=== PATIENT | male | born 1970 | race Two or more races ===

== ENCOUNTER 2016-06-15 03:30 | Emergency (ER) | payer OTHER ==
[2016-06-15] MEDS ORDERED: NS 0.9% 1000 ML* 1,000 ML IV ONE (03:34)
[2016-06-15 04:09] LABS: Hematocrit 47 % (42-52); Hemoglobin 16.1 g/dl (14.0-18.0); Mean Corpuscular HGB Conc 34 g/dl (31-36); Mean Corpuscular Hemoglobin 32 pg (27-31); Mean Corpuscular Volume 92 fL (80-94); Mean Platelet Volume 8 um3 (7.4-10.4); Red Blood Count 5.12 10^6/ul (4.0-5.4); Red Cell Distribution Width 13 % (10.5-15); White Blood Count 4.4 10^3/ul (3.5-10.8)
[2016-06-15 04:10] LABS: Add Diff/Slide Review? Slide Review Added; Comments Flag Yes
[2016-06-15 04:18] LABS: Albumin 4.1 g/dL (3.2-5.2); BUN/Creatinine Ratio 16.8 (8-20); Calcium 8.9 mg/dL (8.6-10.3); EGFR African American 110.8 (>60); EGFR Non-African American 86.1 (>60); Globulin 2.6 g/dL (2-4); Magnesium 2.1 mg/dL (1.9-2.7); Potassium 3.7 mmol/L (3.5-5.0); Total Bilirubin 0.5 mg/dL (0.2-1.0); Total Protein 6.7 g/dL (6.4-8.9)
[2016-06-15 05:17] LABS: Budding Yeast Present (Absent); Urine Bacteria Absent (Absent); Urine Bilirubin Negative (Negative); Urine Glucose 2+(150 mg/dL) (Negative); Urine Nitrite Negative (Negative)
--- NOTE | 2016-06-15 05:33 | ED ---
I, Oh,Kevon, scribed for Jason Nicholas MD on 06/15/16 at 0354 . Neurological HPI - HPI Summary HPI Summary: This 45 y/o male presents to ED via ambulance for acute onset of witnessed seizure tonight [employer]OCIATE [employer] DIRECT[employer]. Pt was sleeping in bed when he fell out of bed and proceeded to have seizure on floor for about a minute. witnessed the episode and reports that pt appeared confused after the episode. Negative hx of any known seizure. Pt reports that he felt exhausted before going to bed around 2000 PM last evening. - History of Current Complaint Stated Complaint: SEIZURE Hx Obtained From: Patient, Family/Manager Financial Systems - present at bedside, Medical Records Onset/Duration: Sudden Onset Timing: Intermittent Episodes Lasting: - 1 minute Onset Severity: Moderate Current Severity: None Neurological Deficit Location: Generalized Character: Confusion - post-ictal Aggravating: Nothing Alleviating: Spontanious Resolution Associated Signs and Symptoms: Positive: Seizure - Allergy/Home Medications Allergies/Adverse Reactions: Allergies Allergy/AdvReac Type Severity Reaction Status Date / Time No Known Allergies Allergy Verified 06/15/16 04:04 Home Medications: Home Medications NK [No Home Medications Reported] 06/15/16 [History Confirmed 06/15/16] PMH/Surg Hx/FS Hx/Imm Hx Cardiovascular History: Denies: Hx Pacemaker/ICD Sensory History: Denies: Hx Hearing Aid Psychiatric History: Denies: Hx Panic Disorder - Surgical History Surgery Procedure, Year, and Place: RT ANKLE TENDON REPAIR. LT ANKLE ACHILLES REPAIR - Family History Known Family History: Positive: Hypertension, Diabetes - Social History Lives: With Family Alcohol Use: Occasionally Hx Substance Use: No Substance Use Type: Reports: None Hx Tobacco Use: Yes Smoking Status (MU): Current Some Day Smoker Review of Systems Negative: Fever Neurological: Other - positive for seizure. Positive for post-ictal All Other Systems Reviewed And Are Negative: Yes Physical Exam Triage Information Reviewed: Yes Vital Signs On Initial Exam: Initial Vitals Temp Pulse Resp BP Pulse Ox 98.1 F 86 19 140/82 99 06/15/16 03:56 06/15/16 03:56 06/15/16 03:56 06/15/16 03:56 06/15/16 03:56 Vital Signs Reviewed: Yes Appearance: Positive: Well-Appearing, No Pain Distress Skin: Positive: Warm Head/Face: Positive: Normal Head/Face Inspection Eyes: Positive: JOSEP ENT: Positive: Hearing grossly normal Neck: Positive: Supple Respiratory/Lung Sounds: Positive: Clear to Auscultation, Breath Sounds Present Cardiovascular: Positive: RRR Abdomen Description: Positive: Nontender, Soft Bowel Sounds: Positive: Present Musculoskeletal: Positive: Strength/ROM Intact Neurological: Positive: Sensory/Motor Intact, Alert, Oriented to Person Place, Time, CN Intact II-III, Normal Gait Psychiatric: Positive: Affect/Mood Appropriate Diagnostics - Vital Signs Vital Signs Temp Pulse Resp BP Pulse Ox 06/15/16 03:58 98.1 F 86 19 140/82 99 06/15/16 03:56 98.1 F 86 19 140/82 99 - Laboratory Lab Results: Lab Results 06/15/16 06/15/16 06/15/16 Range/Units 03:50 03:50 03:50 WBC 4.4 (3.5-10.8) 10^3/ul RBC 5.12 (4.0-5.4) 10^6/ul Hgb 16.1 (14.0-18.0) g/dl Hct 47 (42-52) % MCV 92 (80-94) fL MCH 32 H (27-31) pg MCHC 34 (31-36) g/dl RDW 13 (10.5-15) % Plt Count 134 L (150-450) 10^3/ul MPV 8 (7.4-10.4) um3 Neut % (Auto) 53.9 (38-83) % Lymph % (Auto) 26.6 (25-47) % [place] % (Auto) 10.7 H (1-9) % Eos % (Auto) 2.1 (0-6) % Baso % (Auto) 6.7 H (0-2) % Absolute Neuts (auto) 2.4 (1.5-7.7) 10^3/ul Absolute Lymphs (auto) 1.2 (1.0-4.8) 10^3/ul Absolute Monos (auto) 0.5 (0-0.8) 10^3/ul Absolute Eos (auto) 0.1 (0-0.6) 10^3/ul Absolute Basos (auto) 0.3 H (0-0.2) 10^3/ul Absolute Nucleated RBC 0.01 10^3/ul Nucleated RBC % 0.2 INR (Anticoag Therapy) 0.93 (0.89-1.11) Sodium 133 (133-145) mmol/L Potassium 3.7 (3.5-5.0) mmol/L Chloride 105 (101-111) mmol/L Carbon Dioxide 20 L (22-32) mmol/L Anion Gap 8 (2-11) mmol/L BUN 16 (6-24) mg/dL Creatinine 0.95 (0.67-1.17) mg/dL Est GFR ( Amer) 110.8 (>60) Est GFR (Non-Af Amer) 86.1 (>60) BUN/Creatinine Ratio 16.8 (8-20) Glucose 166 H (70-100) mg/dL Lactic Acid (0.5-2.0) mmol/L Calcium 8.9 (8.6-10.3) mg/dL Magnesium 2.1 (1.9-2.7) mg/dL Total Bilirubin 0.50 (0.2-1.0) mg/dL AST 25 (13-39) U/L ALT 22 (7-52) U/L Alkaline Phosphatase 47 (34-104) U/L Total Protein 6.7 (6.4-8.9) g/dL Albumin 4.1 (3.2-5.2) g/dL Globulin 2.6 (2-4) g/dL Albumin/Globulin Ratio 1.6 (1-3) Urine Color Urine Appearance Urine pH (5-9) Ur Specific [place] (1.010-1.030) Urine Protein (Negative) Urine Ketones (Negative) Urine Blood (Negative) Urine Nitrate (Negative) Urine Bilirubin (Negative) Urine Urobilinogen (Negative) Ur Leukocyte Esterase (Negative) Urine WBC (Auto) (Absent) Urine RBC (Auto) (Absent) Urine Bacteria (Absent) Urine Yeast (Absent) Urine Glucose (Negative) Urine Ascorbic Acid (Negative) 06/15/16 06/15/16 Range/Units 03:50 05:00 WBC (3.5-10.8) 10^3/ul RBC (4.0-5.4) 10^6/ul Hgb (14.0-18.0) g/dl Hct (42-52) % MCV (80-94) fL MCH (27-31) pg MCHC (31-36) g/dl RDW (10.5-15) % Plt Count (150-450) 10^3/ul MPV (7.4-10.4) um3 Neut % (Auto) (38-83) % Lymph % (Auto) (25-47) % [place] % (Auto) (1-9) % Eos % (Auto) (0-6) % Baso % (Auto) (0-2) % Absolute Neuts (auto) (1.5-7.7) 10^3/ul Absolute Lymphs (auto) (1.0-4.8) 10^3/ul Absolute Monos (auto) (0-0.8) 10^3/ul Absolute Eos (auto) (0-0.6) 10^3/ul Absolute Basos (auto) (0-0.2) 10^3/ul Absolute Nucleated RBC 10^3/ul Nucleated RBC % INR (Anticoag Therapy) (0.89-1.11) Sodium (133-145) mmol/L Potassium (3.5-5.0) mmol/L Chloride (101-111) mmol/L Carbon Dioxide (22-32) mmol/L Anion Gap (2-11) mmol/L BUN (6-24) mg/dL Creatinine (0.67-1.17) mg/dL Est GFR ( Amer) (>60) Est GFR (Non-Af Amer) (>60) BUN/Creatinine Ratio (8-20) Glucose (70-100) mg/dL Lactic Acid 4.1 H* (0.5-2.0) mmol/L Calcium (8.6-10.3) mg/dL Magnesium (1.9-2.7) mg/dL Total Bilirubin (0.2-1.0) mg/dL AST (13-39) U/L ALT (7-52) U/L Alkaline Phosphatase (34-104) U/L Total Protein (6.4-8.9) g/dL Albumin (3.2-5.2) g/dL Globulin (2-4) g/dL Albumin/Globulin Ratio (1-3) Urine Color Yellow Urine Appearance Cloudy Urine pH 5.0 (5-9) Ur Specific [place] 1.016 (1.010-1.030) Urine Protein 1+(30 mg/dl) H (Negative) Urine Ketones Trace H (Negative) Urine Blood Negative (Negative) Urine Nitrate Negative (Negative) Urine Bilirubin Negative (Negative) Urine Urobilinogen Negative (Negative) Ur Leukocyte Esterase Negative (Negative) Urine WBC (Auto) Trace(0-5/hpf) (Absent) Urine RBC (Auto) Trace(0-2/hpf) (Absent) Urine Bacteria Absent (Absent) Urine Yeast Present H (Absent) Urine Glucose 2+(150 mg/dl) H (Negative) Urine Ascorbic Acid * H (Negative) Result Diagrams: 06/15/16 03:50 06/15/16 03:50 Lab Statement: Any lab studies that have been ordered have been reviewed, and results considered in the medical decision making process. - CT Brain CT Interpretation: No Acute Changes CT Interpretation Completed By: Radiologist Re-Evaluation - Re-Evaluation First Eval Re-Evaluation Time: 05:00 - pt remains awake, alert, no further seizures, will d /c home to call neuro in am for f/u, will not start anticonvulsant since only 1 seizure, will have pt f/u with neuro for eeg, etc. Pt explained may not drive ot use heavy machinery and return to ed if another seizure Course/Dx - Diagnoses Provider Diagnoses: Seizure disorder Discharge - Discharge Plan Condition: Stable Disposition: HOME Patient Education Materials: New-Onset Seizure in Adults (ED) Referrals: Fatuma Bae MD [Medical Doctor] - 2 Days Carol Blank MD [Primary Care Provider] - 2 Days Additional Instructions: Please be sure to avoid driving until you follow up with neurologist. The documentation as recorded by the Ravinder mead Soohyun accurately reflects the service I personally performed and the decisions made by me, Jason Nicholas MD.
[2016-06-15 05:36] VITALS: BP 143/72
[2016-06-15] MEDS ORDERED: LORazepam INJ* 2 MG/ML 1 ML VIAL ONE (07:25)
--- NOTE | 2016-06-15 08:05 | RAD ---
INDICATION: Seizure. COMPARISON: There are no prior studies available for comparison. TECHNIQUE: Contiguous axial sections of the brain were obtained from the skull base to the vertex without contrast. FINDINGS: The ventricles, cisterns and sulci are within normal limits. No significant focal abnormality or mass effect is seen. There is no evidence for hemorrhage. No significant focal osseous abnormality is seen. The visualized portion of the paranasal sinuses and mastoid air cells appear clear. IMPRESSION: NO EVIDENCE FOR GROSS ACUTE INFARCT, MASS EFFECT OR HEMORRHAGE.
== END 2016-06-15 05:35 | disposition home or self-care (01) ==
LOC: ED 03:30
DX: G40.909 Epilepsy, unspecified, not intractable, without status epilepticus (principal)
CPT/HCPCS: 36415; 70450; 80053; 81003; 81015; 83605; 83735; 85025; 85610; 93005; 96374; 99283; J2060

== ENCOUNTER 2016-06-15 06:32 | Observation (INO) | payer OTHER ==
[2016-06-15] MEDS ORDERED: NS 0.9% 1000 ML* 1,000 ML IV ONE (06:40)
--- NOTE | 2016-06-15 06:47 | ED ---
I, Oh,Kevon, scribed for Jason Nicholas MD on 06/15/16 at 0643 . Neurological HPI - HPI Summary HPI Summary: This 45 y/o male presents to ED again for the recurrent seizure shortly after being discharged with dx of new onset of seizure earlier this morning. Pt arrived home and went to bed, after which pt's family witnessed patient "convulsing" for about a minute. Pt is brought back to ED. Neurologist consultation is requested, and further plan of care will be discussed. Plan of care involving admission, EEG, and further neurologist work up is discussed. Pt is agreeable at this time. - History of Current Complaint Chief Complaint: EDSeizure Stated Complaint: SIEZURE Time Seen by Provider: 06/15/16 06:37 Hx Obtained From: Patient, Medical Records Onset/Duration: Sudden Onset Timing: Intermittent Episodes Lasting: - 1 minute Neurological Deficit Location: Generalized Associated Signs and Symptoms: Positive: Seizure - Allergy/Home Medications Allergies/Adverse Reactions: Allergies Allergy/AdvReac Type Severity Reaction Status Date / Time No Known Allergies Allergy Verified 06/15/16 06:39 PMH/Surg Hx/FS Hx/Imm Hx Cardiovascular History: Denies: Hx Pacemaker/ICD Sensory History: Denies: Hx Hearing Aid Neurological History: Reports: Hx Seizures Psychiatric History: Denies: Hx Panic Disorder - Surgical History Surgery Procedure, Year, and Place: RT ANKLE TENDON REPAIR. LT ANKLE ACHILLES REPAIR - Family History Known Family History: Positive: Hypertension, Diabetes - Social History Alcohol Use: Occasionally Hx Substance Use: No Substance Use Type: Reports: None Hx Tobacco Use: Yes Smoking Status (MU): Current Some Day Smoker Review of Systems Negative: Fever Negative: incontinence Neurological: Other - positive for recurrent seizure All Other Systems Reviewed And Are Negative: Yes Physical Exam Triage Information Reviewed: Yes Vital Signs On Initial Exam: Initial Vitals Temp Pulse Resp BP Pulse Ox 97.0 F 97 15 165/80 95 06/15/16 06:34 06/15/16 06:34 06/15/16 06:34 06/15/16 06:34 06/15/16 06:34 Vital Signs Reviewed: Yes Appearance: Positive: Well-Appearing, No Pain Distress Skin: Positive: Warm Head/Face: Positive: Normal Head/Face Inspection Eyes: Positive: JOSEP ENT: Positive: Hearing grossly normal Neck: Positive: Supple Respiratory/Lung Sounds: Positive: Clear to Auscultation, Breath Sounds Present Cardiovascular: Positive: RRR Abdomen Description: Positive: Soft Musculoskeletal: Positive: Strength/ROM Intact Neurological: Positive: Sensory/Motor Intact, Alert, Oriented to Person Place, Time, Normal Gait Psychiatric: Positive: Affect/Mood Appropriate Diagnostics - Vital Signs Vital Signs Temp Pulse Resp BP Pulse Ox 06/15/16 06:34 97.0 F 97 15 165/80 95 - Laboratory Lab Statement: Any lab studies that have been ordered have been reviewed, and results considered in the medical decision making process. Re-Evaluation - Re-Evaluation First Eval Re-Evaluation Time: 06:46 - d/w dr ortiz, will admit, hold anticonvulksaants for now, mri,eeg today Course/Dx - Diagnoses Provider Diagnoses: Seizures - Physician Notifications Discussed Care of Patient With: Dr. Bae (Neurologist) at [address] Ross (Hospitalist) consult desired and call out at 0645 AM Time Discussed With Above Provider: 06:41 Instructed by Provider To: Admit As Inpatient Discharge - Discharge Plan Condition: Fair Disposition: ADMITTED TO [facility] The documentation as recorded by the Ravinder mead Soohyun accurately reflects the service I personally performed and the decisions made by , Jason Nicholas MD.
[2016-06-15] MEDS ORDERED: Ondansetron INJ* 2 MG/ML VIAL IV PRN (07:18)
[2016-06-15] MEDS ORDERED: LORazepam INJ* 2 MG/ML 1 ML VIAL IV PUSH ONE (07:38)
[2016-06-15] MEDS ORDERED: Enoxaparin(*) 40 MG/0.4 ML SYR SUBCUT SCH ×2 (08:00→14:00)
[2016-06-15] MEDS ORDERED: LORazepam INJ* 2 MG/ML 1 ML VIAL IV PUSH PRN (08:49)
--- NOTE | 2016-06-15 10:03 | RAD ---
HISTORY: Rales COMPARISONS: September 04, 2007 VIEWS:1: Single frontal portable view of the chest at 9:25 AM FINDINGS: LINES AND TUBES: None. CARDIOMEDIASTINAL SILHOUETTE: The cardiomediastinal silhouette is normal for portable technique. PLEURA: The costophrenic angles are sharp. No pleural abnormalities are noted. LUNG PARENCHYMA: The lungs are clear. ABDOMEN: The upper abdomen is clear. There is no subphrenic gas. BONES AND SOFT TISSUES: No bone or soft tissue abnormalities are noted. IMPRESSION: NO ACTIVE CARDIOPULMONARY DISEASE.
[2016-06-15 10:09] LABS: Benzodiazepine Urine Screen None Detected (None Detect)
--- NOTE | 2016-06-15 10:12 | ED ---
I, James Kim, scribed for Sherrill Sinha MD on 06/15/16 at 0737 . Progress - Progress Note Progress Note: Keon Reyna is a 45 yo male presenting to [facility] with a seizure last night, for which he presented to [facility]. He was discharged last night after work up following his first seizure, and proceeded to go home and sleep fitfully, until experiencing another seizure earlier this morning approximately 1.5 hrs after discharge. He woke completely and returned to baseline, except for slight confusion, when presenting to [facility]. This morning, prior to admission [place] [facility] he had another generalized seizure lasting 40 seconds at 0725. Pt was given Ativan 2mg IV after the seizure had resolved spontaneoulsy, and Dr. Stallings and Dr. Bae consulted. Re-Evaluation - Re-Evaluation First Eval Re-Evaluation Time: 07:25 Change: Worse Comment: experienceing seizure Second Eval Re-Evaluation Time: 07:34 Change: Unchanged Comment: Pt and family are informed of recommendations of Dr. Bae Third Eval Re-Evaluation Time: 08:36 Change: Improved Comment: Pt is sleeping, informed of Dr. Bae's reecommendations. Pt is not roused by voice or light touch. Pt does not exhibit any seizure activity. Course/Dx - Course Course Of Treatment: Keon Osorio is a 45 yo male presenting to [facility] after seizure last night and this morning, signed out from Dr. Nicholas. In the ED he received Keppra IV and ativan. - Diagnoses Provider Diagnoses: Seizures - Provider Notifications Discussed Care Of Patient With: 726 Dr. Stallings (hospitalist) - discussed Pt condition, recommends consult with Dr. Bae. 0731 - Dr. Bae (neurology) - discussed Pt condition, recommends Keppra IV. 0834 - Dr. Bae (neurology) - discussed Pt condition, requests urine for a drug screen. Instructed by Provider To: Admit As Inpatient The documentation as recorded by the carine mead Timothy accurately reflects the service I personally performed and the decisions made by me, Sherrill Sinha MD.
[2016-06-15] MEDS: NS 0.9% 1000 ML* 1,000 ML IV SCH ×2 (11:01→23:10)
--- NOTE | 2016-06-15 14:02 | CONS ---
NEUROLOGY CONSULTATION: DATE OF CONSULT: 06/15/16 LOCATION: The patient is in the emergency department. REQUESTING PHYSICIAN: Dr. Nicholas. REASON FOR CONSULT: New-onset seizures. HISTORY OF PRESENT ILLNESS: Mr. Dana Reyna is a 45-year-old man with no significant past medical history aside from head injury last year at a friend's house, who presents with 3 new-onset seizures in the past 24 hours. The history is obtained from discussion with Dr. Nicholas over the phone as well as discussion with the patient's at the bedside as the patient is currently still postictal. Around 2:30 this morning, his was woken up by the sound of him falling out of bed and hitting his head on the nightstand. She found him in a generalized tonic- clonic seizure on the floor, which reportedly lasted less than a minute. He was thrashing and combative afterward. He was brought to the emergency department via ambulance for evaluation and apparently told Dr. Nicholas that he felt exhausted last evening before going to bed around 8 o'clock. As his labs came back unremarkable and he was essentially back to his baseline, he was discharged home around around 5 a.m. and was instructed to follow up with Neurology as an outpatient. He then experienced a second seizure around 6:30 in the morning at home and was brought back to the emergency department once again. He had almost returned to his baseline aside from being tired and slightly confused about whether he had traveled out of the country recently or not when he experienced the third seizure around 7:30 or 7: 45 this morning. At that time, he received 2 mg of IV Ativan and I advised an IV load of levetiracetam 1500 mg. His denies noticing any localizing signs with the seizures, though she thinks perhaps his head was turned toward the right with the third seizure. His reports that at a friend's house sometime last year he fell off a patio and hit his head on the ground. She is not aware if he lost consciousness and says he has had "undiagnosed" head injury. Since then, at times when he is at the gym, he has complained of dimming of his vision, but otherwise she is not aware of any sequelae from this accident. She denies that he has any history of drug use outside of marijuana. He drinks a couple of beers a few times a week but has never been a binge drinker and has never been an alcoholic. He has no history of [employer] infections as far she is aware. He apparently stuttered as a child, but she has been unaware of any developmental problems or learning problems. There is no family history of epilepsy. PAST MEDICAL HISTORY: Right ankle tendon repair and left ankle Achilles repair. FAMILY HISTORY: There is a family history of hypertension and diabetes. No family history of epilepsy. SOCIAL HISTORY: He lives with his . They have a 28-year-old daughter. Substance use as per the HPI. He also occasionally smokes cigars. 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 REVIEW OF SYSTEMS: He had what his describes as a cold over the past week. Approximately, a week ago, he had a fever which was measured to about 100 degrees Fahrenheit, but has not had a fever since then and has been recovering normally from this cold. There is no history of appetite loss, nausea, vomiting , diarrhea. There are no new skin rashes. He has not traveled out of the country recently. PHYSICAL EXAM: Vital Signs: Temperature 97 degrees, blood pressure 165/80, heart rate 97, and oxygen saturation 95% on room air. On general examination, he is asleep in the bed and somewhat restless. He is lying on his left side. There is blood on his lips and blood on the sheets of the gurney as well. His heart is tachycardic but regular and there are no obvious murmurs. The lungs appeared clear to auscultation though he could not really cooperate with taking deep breaths. I was not able to get a good look in his mouth at this time. On neurologic examination, he is somnolent and arouses briefly to verbal stimuli but falls back to sleep quickly. He is aware that he is in a medical facility because of seizures. He reported his age his to be 46, which he will be in a few weeks. On cranial nerve examination, pupils are equal, round, and reactive from 4 to 2 mm bilaterally. His gaze was midline and he was able to move his eyes in all directions without nystagmus. There was blink to threat bilaterally. His face appears symmetric but he was not able to cooperate with grimacing or smiling. He indicated that his facial sensation was intact bilaterally to light touch. On motor examination, he moved his lower extremities equally. He was able to sustain his left upper extremity antigravity for 10 seconds but with the right extremity, there was some drifting down to the bed prior to 10 seconds. It was not clear if this was due to his mental status or due to true weakness at this time. Sensation is intact to noxious stimulation. There is no ankle clonus and his toes are downgoing. Coordination testing could not be completed at this time. DIAGNOSTIC STUDIES/LAB DATA: Collected during his initial emergency department visit showed a white blood cell count of 4.4 with elevated monocyte percentage of 10.7 and an elevated basophil percentage of 6.7 and elevated basophils of 0.3. His MCH is 32 and platelets are 134. Chemistry panel showed a low CO2 of 20, glucose of 166, and a lactate of 4.1. His sodium was normal and renal function was normal. Calcium was 8.9 and magnesium 2.1. Urinalysis showed 1+ protein, trace ketones, 2+ glucose, and was positive for yeast. Noncontrast brain CT was obtained and personally reviewed and showed no obvious hemorrhage and no tumor and no obvious intracranial abnormalities. IMPRESSION: Keon Reyna is a 45-year-old man with little significant past medical history aside from a head injury of unknown severity and significance approximately a year ago as well as a recent upper respiratory infection presenting with 3 seizures in the last 24 hours, which are apparently unprovoked. At this point, he has been loaded with 1500 mg of Keppra and also received 2 mg of Ativan. I will continue him on levetiracetam 750 mg twice daily at this time. He has been ordered for an EEG and I have asked for this to be delayed a couple of hours in an effort to give a chance for some of the Ativan effect to wear off. He will also undergo MRI scan of the brain with and without contrast with epilepsy protocol. I have also requested a urine drug screen be completed. If he has another seizure, I think it will be appropriate to obtain lumbar puncture, especially given his recent apparent viral infection though this sounds relatively minor by description. He will be brought into the hospital for this workup and for monitoring for further seizure activity. Thank you for this consultation. [id number]/[facility] #: [id number] [facility]
--- NOTE | 2016-06-15 14:26 | HP ---
ADMISSION HISTORY AND PHYSICAL: DATE OF ADMISSION: 06/15/2016. PRIMARY CARE PROVIDER: Dr. Aranda, although has not seen in many years. HEALTHCARE PROXY: His , Leigh. CODE STATUS: Full. SOURCE OF INFORMATION: History obtained from interview with the patient's , discussion with ED physician, review of Dr. Bae's note. RELIABILITY: Good. CHIEF COMPLAINT: Multiple seizures. HISTORY OF PRESENT ILLNESS: This is a 45-year-old man, no significant past medical history, had been in his usual state of health up until approximately 1 week prior, had upper respiratory tract infection characterized by cough and congestion and fever to 100 degrees, had resolved, without any headache. Healthcare proxy notes they live with their 2-year-old grandchild, who has had a runny nose, has not changed from baseline. The night of admission at 2:45 a.m. woke up at the noise from her hitting a lamp, found him having a generalized tonic-clonic seizure lasted for approximately 1 minute. EMS was activated per their reports. He was still confused upon their arrival. He was brought to [facility] ED and returned back to his baseline and had normal labs, was discharged from the hospital. However, around 6:30 a.m., he had a second GTC , again lasting for approximately 1 minute, returned to [facility] ED. He returned to his baseline again; however, had a third seizure on 7:30 a.m., GTC, received 2 mg IV Ativan and loaded with 1.5 g of Keppra. It is of note that the patient last year fell off a patio and hit his head. It was unwitnessed and when the family arrived, he was awake. There was no suspected loss of consciousness. When seen by this author, the patient was alert, but drowsy, unable to participate meaningfully in interview or review of systems. PAST MEDICAL HISTORY: History of hitting his head 1 year prior, right ankle repair, left Achilles tendon repair, left shoulder tear repair. MEDICATIONS: No medications, no [id number]'s. ALLERGIES: No known drug allergies. FAMILY HISTORY: No history of epilepsy. Father and mother both had hypertension and diabetes. 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 Occasional marijuana, 2 to 3 beers several times per week. Smokes cigars occasionally. Lives with his . REVIEW OF SYSTEMS: Obtained through , as above, otherwise all negative as able to review, as the patient could not participate. PHYSICAL EXAMINATION GENERAL: Lying flat in bed, wakes to voice. He has bruising around bilateral lips and chin. VITAL SIGNS: When seen by this author, 118/73, heart rate is 78, respiratory rate is 22, T-max in the emergency room is 97 degrees and is 92% on room air. HEENT: He has moist mucous membranes. Sclerae are anicteric. LUNGS: Clear with rales in bilateral bases. HEART: Regular rate and rhythm. ABDOMEN: Soft, nontender. EXTREMITIES: Warm and well perfused without clubbing, cyanosis, or edema. NEUROLOGIC: He is A and O x2 to self and hospital. He said it was 191, then 2013. Follows simple commands, although is lethargic. Difficult test. Cranial nerves and gait not assessed. DIAGNOSTIC STUDIES/LAB DATA: Reviewed are in chart from previous hospital stay. This morning sodium 133, potassium 3.7, chloride 105, bicarb 20, BUN 16, creatinine 0.95, glucose is 166, lactic acid is 4.1. LFTs within normal limits. White blood cell count 4.4, hemoglobin 16.1, and platelets 174. Chest x-ray ordered and pending. ASSESSMENT AND PLAN: This is a 45-year-old man, no significant past medical history except for head strike approximately 1 year prior with unknown loss of consciousness and presenting with 3 seizures over the last 24 hours, status post Keppra load and Ativan. 1. Seizures. Appreciate Dr. Bae's assistance. We will admit to hospital. His EEG and MRI are pending. Continue Keppra 750 mg twice daily. If has additional seizure, we will plan on lumbar puncture. Urine drug screen is pending. Seizure precautions. 2. Lactic acidosis. Suspected in the setting of multiple seizures. I will repeat to ensure downtrending. 3. Increased glucose. Add on hemoglobin A1c to labs. We will cover with lispro if needed. 4. Rales in bilateral bases. Check chest x-ray. 5. DVT prophylaxis. Enoxaparin. 6. FEN. Continue 100 cc normal saline until more awake and able to tolerate diet. 7. Code status is full. [id number]/[facility] #: [id number] [facility]
[2016-06-15] MEDS ORDERED: Gadoteridol* (CONTRAST) 279.3 MG/ML 10 ML IV ONE (15:56)
--- NOTE | 2016-06-15 16:52 | RAD ---
INDICATION: Seizures COMPARISON: CT brain June 15, 2016 TECHNIQUE: sagittal T1 FLAIR, axial diffusion, axial T1 FLAIR, axial T2, axial T2 FLAIR, coronal T2 FLAIR, coronal T1 and SWI images were acquired. FINDINGS: Craniocervical junction: The craniocervical junction appears normal. Ventricles/sulci: The ventricles and cisterns are normal in size and configuration for age. Brain parenchyma: There are no focal parenchymal abnormalities. There is no evidence of intracranial mass or mass effect. The diffusion weighted images show no evidence of acute ischemia. Intracranial hemorrhage: There is no intracranial hemorrhage. Extra-axial spaces: There are no extra-axial fluid collections or masses. Orbits: There are no MR abnormalities of the orbital structures. Paranasal sinuses/mastoid: The paranasal sinuses are clear. The mastoid air cells are well aerated.. Vascular: No abnormalities are seen. Other: None IMPRESSION: NO SPECIFIC MR ABNORMALITIES. NO TEMPORAL LOBE ABNORMALITIES.
[2016-06-15] MEDS: Acetaminophen TAB* 325 MG PO PRN (19:57)
[2016-06-15] MEDS: levETIRAcetam TAB* 500 MG PO SCH (21:41)
[2016-06-16 07:20] LABS: EGFR African American 145.5 (>60); EGFR Non-African American 113.1 (>60)
--- NOTE | 2016-06-16 07:25 | EEG ---
ELECTROENCEPHALOGRAPHY: DATE OF STUDY: 06/15/16 LOCATION: The patient is an inpatient. ORDERING PHYSICIAN: Stanton Stallings MD. HISTORY: This is a 45-year-old man with no significant past medical history who experienced 3 seizu res in the past 24 hours, which are described as generalized tonic-clonic in nature. He received 2 mg of Ativan approximately 3 hours prior to this EEG. He has also been loaded with 1500 mg of Keppr a. EEG is requested to evaluate for epileptiform abnormalities. MEDICATIONS: 1. Levetiracetam. 2. Zofran. 3. Tylenol. 4. Lovenox. DESCRIPTION: The waking background was very briefly observed toward the middle to end of this recor ding. It demonstrated appropriate organization with clearly defined ngjzkcfg-jh-lesimydsg voltage a nd frequency gradients. There was a well- defined posterior dominant rhythm of 9 Hz, which was symm etrical. Anteriorly, there was an expected pattern of lower voltage, irregular, and mixed faster fr equencies. Attenuation of the occipital rhythm accompanied drowsiness. The majority of the recording was captu red in the sleep state, which showed appropriate organization with well-developed sleep spindles. T hese sleep transients showed appropriate morphology and were bilaterally synchronous and symmetrical . Throughout the recording, there were no epileptiform discharges, focal features, paroxysmal features or significant interhemispheric asymmetries. IMPRESSION: This is a normal waking and sleep EEG. There are no epileptiform abnormalities. [id number]/[facility] #: [id number]
[2016-06-16] MEDS: levETIRAcetam TAB* 500 MG PO SCH (08:19)
[2016-06-16] MEDS: Acetaminophen TAB* 325 MG PO PRN (08:22)
[2016-06-16 09:11] VITALS: BP 165/78
--- NOTE | 2016-06-16 23:03 | PN ---
NEUROLOGY FOLLOWUP: DATE OF FOLLOWUP: 06/16/16 OVERNIGHT EVENTS: No acute overnight events. The patient has not experienced any further seizures. His mouth is sore, in particular his tongue. Levetiracetam seems to be making him sleepy and his says he keeps asking everyone who comes in when he can go home, which is a bit "aggressive" for him, but otherwise he seems to be back to his baseline. I asked the patient about his history of head trauma and he reports that he fell off a wall on to a concrete patio or side walk and hit his head last year. When asked if he lost consciousness, he replied "I should have." He states that he still gets some postconcussive symptoms intermittently, which mainly consist of the dimming of vision when he is exercising that his described to me yesterday. MEDICATIONS: Medications were reviewed and include levetiracetam 750 mg twice daily. PHYSICAL EXAMINATION: Vital Signs: Temperature was measured at 100 degrees Fahrenheit at 7:55 in the morning and had been 98.4 at 4:18 in the morning. Blood pressure 165/78, heart rate 74. Oxygen saturation 97% on room air. On general examination, he was initially somewhat restless in bed, flipping from side to side, but then was able to be engaged in the history and physical and seemed appropriate though with some poor eye contact. On general examination, he had some trauma to the right side of his tongue. His mucous membranes are dry. His speech is somewhat difficult to understand due to his tongue swelling. There is no obvious injury or damage to his teeth. His versions are full without nystagmus. Visual soto are full to confrontation. Facial sensation and musculature is full and symmetric. The tongue protrudes in the midline and the palate elevates symmetrically. On motor examination, there is normal strength in the upper and lower extremities with no pronator drift. Sensation is intact to light touch in the upper and lower extremities. Iadwux-wx-dger is intact without ataxia. Romberg is negative. Reflexes are 2+ in the upper and lower extremities with downgoing toes bilaterally. He is able to heel and toe walk. LABORATORY DATA: Reviewed, includes a hemoglobin A1c of 5.6 and normal renal function today. His lactate measured yesterday morning at 9:40 was 1.2. Y esterday, MRI scan of the brain was personally reviewed and showed no epileptogenic foci. The scan was normal. EEG reviewed yesterday was also normal. IMPRESSION: Keon Reyna is a 45-year-old man with series of 3 new- onset seizures in a 24-hour period. There were no obvious provoking factors for these seizures. The only possible risk factor he has is this head trauma though his MRI scan was normal. I discussed with him my recommendation to continue Keppra at this time, though he does not have a diagnosis of epilepsy at this time. The fact that he had 3 seizures in such a short period of time makes me lean towards treating at this time. I suggest that he follow up in my office in approximately 3 months after discussing potential side effects of Keppra including sleepiness which often improves after 1 to 2 weeks as well as mood changes, most notably irritability and depression. I reviewed the [place] [employer] driving regulations with him including that he should not operate motor vehicle for 12 months and should report himself to the DMV on the appropriate form. He was clearly unhappy with this information and his initial reaction was to say that "that is not going to happen." His was present for this discussion as well. I will see him back in the office in approximately 3 months and I would like to get a repeat EEG at that time. I also asked Dr. Stallings to discharge him with some lidocaine mouth wash. [id number]/[facility] #: [id number] [facility] MED[facility] CENTERLauri
--- NOTE | 2016-06-16 23:53 | DS ---
DISCHARGE SUMMARY: DATE OF ADMISSION: 06/15/16 DATE OF DISCHARGE: 06/16/16 [facility] PRIMARY DIAGNOSIS: Multiple seizures. SECONDARY DIAGNOSIS: Thrush. MEDICATIONS AT DISCHARGE: 1. Keppra 750 mg twice daily. 2. Magic mouthwash swish 5 mL in mouth for 15 to 30 seconds and spit, 4 times a day. PROCEDURES OR IMAGING PERFORMED DURING HOSPITAL STAY: EEG. Impression: This is a normal waking and asleep EEG. There are no epileptiform abnormalities. Brain MRI. Impression: No specific MR abnormalities. No temporal lobe abnormalities. HISTORY OF PRESENT ILLNESS AND HOSPITAL COURSE: This 45-year-old man, no significant past medical history other than a fall approximately 1 year ago in September where he landed on his head with unknown loss of consciousness, presented to the hospital with seizures. His labs were insignificant and he was discharged from the hospital, had additional seizure at home and returned to the emergency room. While waiting in the emergency room, he had a third seizure and was then admitted to the hospital after loading with 1.5 g with Keppra and receiving 2 mg of Ativan. He was observed for an additional 24 hours , had no additional seizure activity. He had an EEG and MRI as indicated above. He was seen in consultation with Dr. Bae from Neurology. At this point, there is no clear etiology elucidated for the cause of his seizures other than head trauma approximately 1 year prior, although MRI did not indicated any scarring or gliosis. He will be started on Keppra 750 mg twice daily and he is to follow up with Dr. Bae in 3 months who will be making that appointment and contacting the patient. Extensive counseling with patient and his were undergone indicating level of activity. The patient can resume including not driving as well as avoiding activities that may be dangerous should he has sudden loss of consciousness such as operating machinery, power tools, walking on roofs, walking on the edge of the efren, swimming deep water unsupervised. The patient acknowledged understanding, although it is unclear whether he will be adherent. PERTINENT LABORATORY DATA: Notable for hemoglobin A1c of 6.5 and urine was positive for yeast as well as 2+ glucose. On the day of discharge, the patient was interactive, ambulatory, no complaints. He had a laceration on his tongue as well as his lip with associated candidiasis. His genital exam did not indicate any active infection or yeast. Reason to return to the hospital including, but not limited to recurrent or worsening symptoms including loss of consciousness or seizures or seizure like activity, headache, fever, chills, night sweats, chest pain, shortness of breath , bleeding from any source, inability to obtain or tolerate medications was discussed with the patient and at length. TIME SPENT: Greater than 60 minutes were spent on discharge of this patient, of which greater than half was spent ghpq-[id number] with the patient. CC: Dr. Brown; Dr. Blank; Dr. Bae* [id number]/[facility] #: [id number] [facility]
== END 2016-06-16 10:30 | disposition home or self-care (01) ==
LOC: ED 06:32 → MED 07:18
PROVIDERS: ADMIT Internal Medicine; ATTEND Internal Medicine
DX: R56.9 Unspecified convulsions (principal); E87.2 Acidosis; Z72.0 Tobacco use; B37.0 Candidal stomatitis; S01.552A Open bite of oral cavity, initial encounter; X58.XXXA Exposure to other specified factors, initial encounter; Y92.009 Unspecified place in unspecified non-institutional (private) residence as the place of occurrence of the external cause; R73.9 Hyperglycemia, unspecified; R09.89 Other specified symptoms and signs involving the circulatory and respiratory systems
CPT/HCPCS: 36415; 70553; 71010; 80307; 82565; 83036; 83605; 84520; 95819; 96360; 96374; 99285; A9270-GY; A9579; G0378; J1650